=== PATIENT | female | born 1995 | race Asian ===

== ENCOUNTER 2019-01-15 03:17 | Emergency (ER) | payer OTHER ==
[~2019-01-15] VITALS: Ht 172.7 cm; Wt 72.6 kg
[2019-01-15 03:25] VITALS: BP 104/71
--- NOTE | 2019-01-15 03:35 | NUR ---
BIBSELF. AAOX4. NO RESP DISTRESS, BREATHING EVEN AND UNLABORED. AMBULATORY. C/O VAGINAL PAIN X 2DAYS NOTED AFTER INTERCOURSE 3 DAYS AGO. PT REPORT CLEAR DISCHARGE ON HER UNDERWEAR. NO BLEEDING REPORTED. PT REPORTS THAT SHE HAS AN IUD FOR CONTROL. AWAITING MD FOR SWETHA
[2019-01-15] MEDS ORDERED: oxyCODONE/APAP (5/325 MG) 1 UDTAB TABLET PO ONE (04:00)
[2019-01-15] MEDS ORDERED: LIDOCAINE VISCOUS 2% UD 15 ML UDC MM ONE (04:00)
[2019-01-15] MEDS ORDERED: LIDOCAINE VISCOUS 2% UD 15 ML UDC ONE (04:07)
[2019-01-15] MEDS ORDERED: oxyCODONE/APAP (5/325 MG) 1 UDTAB TABLET ONE (04:07)
[2019-01-15 04:36] LABS: APPEARANCE,URINE CLEAR (CLEAR); BILIRUBIN,URINE NEGATIVE (NEGATIVE); BLOOD, URINE TRACE-INTA Ery/uL (NEGATIVE); COLOR,URINE YELLOW (YELLOW); KETONES,URINE NEGATIVE (NEGATIVE); LEUKOCYTE ESTERASE ,URINE 1+ (NEGATIVE); NITRITE, URINE NEGATIVE (NEGATIVE); PROTEIN,URINE NEGATIVE (NEGATIVE); UGLUCOSE NEGATIVE (NEGATIVE); UROBILINOGEN,URINE 0.2 EU/dL (0.2)
[2019-01-15 04:45] LABS: BACTERIA,URINE Rare /HPF (None Seen)
[2019-01-15 04:46] LABS: MUCUS,URINE Few /LPF (None Seen); SQUAMOUS EPITHELIAL CELL,UR None Seen /HPF (None Seen)
[2019-01-15] MEDS ORDERED: ONDANSETRON 4 MG TAB.RAPDIS SL ONE (05:00)
[2019-01-15] MEDS ORDERED: CEFTRIAXONE 1 G VIAL IM ONE (05:00)
[2019-01-15] MEDS ORDERED: AZITHROMYCIN 250 MG TABLET PO ONE (05:00)
[2019-01-15] MEDS ORDERED: ACYCLOVIR 200 MG CAPSULE PO ONE (05:00)
[2019-01-15] MEDS ORDERED: LIDOCAINE /MPF 1% VIAL 5 ML VIAL ONE (05:01)
[2019-01-15] MEDS ORDERED: CEFTRIAXONE 500 MG VIAL ONE (05:01)
[2019-01-15] MEDS ORDERED: ONDANSETRON 4 MG TAB.RAPDIS ONE (05:02)
[2019-01-15] MEDS ORDERED: ACYCLOVIR 200 MG CAPSULE ONE (05:02)
[2019-01-15] MEDS ORDERED: AZITHROMYCIN 250 MG TABLET ONE (05:22)
--- NOTE | 2019-01-15 05:52 | NUR ---
Patient discharged to home in stable condition. Written and verbal after care instructions given. Patient verbalizes understanding of instruction. Pt ambulatory with a steady gait
== END 2019-01-15 05:54 | disposition home or self-care (01) ==
LOC: ER 03:21
DX: N76.5 Ulceration of vagina (principal); J45.909 Unspecified asthma, uncomplicated
CPT/HCPCS: 36415; 81001; 84703; 87077; 87086; 87186; 87210; 87491; 87591; 96372; 99284; J0696; J3490; Q0162; 81000-TC

== ENCOUNTER 2020-07-14 06:09 | Emergency (ER) | payer OTHER ==
[~2020-07-14] VITALS: Ht 172.7 cm; Wt 81.6 kg
[2020-07-14 06:11] VITALS: BP 132/64
== END 2020-07-14 07:02 | disposition home or self-care (01) ==
LOC: ER 06:24
DX: U07.1 COVID-19 (principal); J45.909 Unspecified asthma, uncomplicated
CPT/HCPCS: 99283; C9803; U0003

== ENCOUNTER 2021-07-21 18:23 | Emergency (ER) | payer BC, OTHER ==
[~2021-07-21] VITALS: Ht 172.7 cm; Wt 81.6 kg
[2021-07-21] MEDS ORDERED: GUAI-671 PO (18:58)
[2021-07-21] MEDS ORDERED: ONDA4TAB11 PO (18:58)
[2021-07-21 19:07] VITALS: BP 144/81
== END 2021-07-21 19:07 | disposition home or self-care (01) ==
LOC: ER 18:26
DX: J06.9 Acute upper respiratory infection, unspecified (principal)